=== PATIENT | female | born 1970 | race Caucasian/White ===

== ENCOUNTER → 2016-09-26 | Outpatient (CLI) | payer OTHER ==
--- NOTE | 2016-09-26 10:54 | REP ---
BILATERAL DIGITAL SCREENING MAMMOGRAM: 09/26/2016. Comparison: 06/04/2013, 04/08/2012, 04/23/2011, 04/07/2010. Clinical history: She has no current complaints, personal or family history of breast cancer. Findings: There are scattered fibroglandular elements of moderate density in the breast parenchyma in a pattern and distribution generally unchanged. However, in the upper outer quadrant of the right breast and lower inner quadrant of that same breast, there are areas of dense tissue asymmetry and nodular tissue asymmetry compared to previous studies respectively. The dense asymmetries in the upper outer quadrant and the nodular tissue asymmetry is lower inner quadrant of that same breast. I do not see skin thickening, other areas of architectural distortion or significant tissue asymmetry, dominant mass or other secondary sign of malignancy. No clustered microcalcifications. Impression: 1. BI-RADS ACR category 0, incomplete. Needs additional imaging evaluation. The patient should return for spot imaging of the upper outer and lower inner quadrants of the right breast. This should be accomplished with the bread anderson spot device and an additional images of the breast may be obtained at the discretion of the reviewing radiologist. Ultrasound should also be scheduled. This mammogram was interpreted with the aid of an FDA-approved computer-aided detection system. The patient states that she/he has not had a clinical breast exam in over a year. The patient letter being requested is M0. Signed by Irvin Gaspar MD 09/26/2016 07:04 P
== END ==
LOC: M RAD 09:15
PROVIDERS: ATTEND Internal Medicine
DX: Z12.31 Encounter for screening mammogram for malignant neoplasm of breast (principal)

== ENCOUNTER → 2016-10-02 | Outpatient (CLI) | payer OTHER ==
--- NOTE | 2016-10-02 16:04 | REP ---
DIAGNOSTIC MAMMOGRAM RIGHT BREAST: Diagnostic mammogram right breast performed with multiple additional views obtained of the right breast. Comparison made with recent mammogram of 09/26/2016 and comparison also made of other prior exams. The asymmetric opacities in the upper outer quadrant of the right breast and lower inner quadrant of the right breast compress out to an unchanged appearance compared to other prior exams. No persistent abnormality is seen. IMPRESSION: ACR 2 benign. No persistent abnormality on today's spot compression views, with no change since more remote exams. Recommend followup mammogram in one year. BI-RADS/ACR category 2 mammogram. Benign finding(s). Routine annual screening mammography (for women over age 40). This mammogram was interpreted with the aid of an FDA-approved computer-aided detection system. The patient letter being requested is M1 Signed by Clemente Davis MD 10/02/2016 08:13 P
== END ==
LOC: M RAD 15:10
PROVIDERS: ATTEND Internal Medicine
DX: N64.89 Other specified disorders of breast (principal)

== ENCOUNTER 2017-08-08 17:08 | Emergency (ER) | payer OTHER ==
[2017-08-08] MEDS: NS 1,000 ML IV (18:00)
[2017-08-08] MEDS: KETOROLAC 30 MG/ML VIAL (J1885) IV (18:00)
[2017-08-08] MEDS: METOCLOPRAMIDE INJ 10MG/2ML VIAL (J2765) IV (18:00)
[2017-08-08 18:13] LABS: BASO % 0.3 % (0.0-1.0); EOS # 0.1 10^3/uL (0.0-0.50); EOS % 1.5 % (0.0-3.0); HEMATOCRIT 44.6 % (36.0-47.0); IMMATURE GRANULOCYTE % 0.3 % (0-3.0); LYMPH % 13.7 % (24.0-44.0); MEAN CORPUSCULAR HEMOGLOBIN 30.9 pg (27.0-33.0); MEAN CORPUSCULAR HGB CONC 33.6 g/dl (32.0-36.5); MEAN CORPUSCULAR VOLUME 91.8 fl (80.0-96.0); MONO # 0.4 10^3/uL (0.0-0.8); MONO % 5.5 % (0.0-5.0); NEUTROPHILS # 5.8 10^3/uL (1.8-7.7); NEUTROPHILS % 78.7 % (36.0-66.0); PLATELET COUNT, AUTOMATED 237 10^3/uL (150-450); RED BLOOD COUNT 4.86 10^6/uL (4.00-5.40); RED CELL DISTRIBUTION WIDTH 11.7 % (11.5-14.5); WHITE BLOOD COUNT 7.4 10^3/uL (4.0-10.0)
[2017-08-08 18:15] LABS: CONTROL LINE UCG INT CTR LINE PRESENT; URINE PREG TEST NEGATIVE (NEGATIVE)
[2017-08-08] MEDS: GASTROGRAFIN SOLUTION 30ML PO ×2 (18:15→18:45)
[2017-08-08 18:17] LABS: KETONE, URINE AUTO RFX TRACE mg/dL (NEGATIVE); LEUKOCYTE ESTERASE UR AUTO RFX NEGATIVE (NEGATIVE); NITRITE, URINE AUTO RFX NEGATIVE (NEGATIVE); RBC, URINE AUTO RFX 0 /HPF (0-3); SPECIFIC GRAVITY UR AUTO RFX 1.005 (1.002-1.035); SQUAM EPITHELIAL CELL UR AURFX 0 /HPF (0-6); WBC, URINE AUTO RFX 0 /HPF (0-3)
[2017-08-08 18:50] LABS: ALBUMIN 4.5 GM/DL (3.2-5.2); ALBUMIN/GLOBULIN RATIO 1.41 (1.00-1.93); ALKALINE PHOSPHATASE 71 U/L (45-117); ALT/SGPT 29 U/L (12-78); AMYLASE 47 U/L (25-115); ANION GAP 7 MEQ/L (8-16); AST/SGOT 31 U/L (7-37); BILIRUBIN,DIRECT 0.2 MG/DL (0.0-0.2); BILIRUBIN,TOTAL 0.6 MG/DL (0.2-1.0); BLOOD UREA NITROGEN 13 MG/DL (7-18); C REACTIVE PROTEIN QUANTITATIV < 0.30 MG/DL (0.00-0.30); CALCIUM LEVEL 8.9 MG/DL (8.5-10.1); CARBON DIOXIDE LEVEL 29 MEQ/L (21-32); CHLORIDE LEVEL 101 MEQ/L (98-107); CREATININE FOR GFR 0.69 MG/DL (0.55-1.30); GLOMERULAR FILTRATION RATE > 60.0 (>58); GLUCOSE, FASTING 126 MG/DL (70-100); POTASSIUM SERUM 3.7 MEQ/L (3.5-5.1); SODIUM LEVEL 137 MEQ/L (136-145); TOTAL PROTEIN 7.7 GM/DL (6.4-8.2)
[2017-08-08] MEDS ORDERED: ISOVUE-370 76% 100ML VIAL (Q9967) As Ordered (19:15)
== END 2017-08-08 21:00 | disposition home or self-care (01) ==
LOC: M ED 17:08
DX: R10.30 Lower abdominal pain, unspecified (principal); R11.2 Nausea with vomiting, unspecified; R19.7 Diarrhea, unspecified; M51.27 Other intervertebral disc displacement, lumbosacral region; Z79.899 Other long term (current) drug therapy
CPT/HCPCS: Q9963

== ENCOUNTER → 2017-10-18 | Outpatient (CLI) | payer OTHER | LOC: M RAD 08:43 | DX: Z12.31 Encounter for screening mammogram for malignant neoplasm of breast (principal) | CPT/HCPCS: 77067 ==

== ENCOUNTER 2018-01-12 12:11 | Emergency (ER) | payer OTHER ==
[2018-01-12] MEDS: MORPHINE 4 MG/ML 1ML VIAL/SYRINGE (J2270) IV (12:45)
[2018-01-12 13:02] LABS: BASO % 0.2 % (0.0-1.0); EOS # 0.1 10^3/uL (0.0-0.50); EOS % 2.8 % (0.0-3.0); HEMATOCRIT 44.2 % (36.0-47.0); HEMOGLOBIN 14.6 g/dl (12.0-15.5); IMMATURE GRANULOCYTE % 0.4 % (0-3.0); LYMPH # 1.2 10^3/uL (1.5-4.5); LYMPH % 23.8 % (24.0-44.0); MEAN CORPUSCULAR HEMOGLOBIN 31.1 pg (27.0-33.0); MONO # 0.4 10^3/uL (0.0-0.8); MONO % 7.7 % (0.0-5.0); NEUTROPHILS # 3.3 10^3/uL (1.8-7.7); NEUTROPHILS % 65.1 % (36.0-66.0); PLATELET COUNT, AUTOMATED 194 10^3/uL (150-450); RED CELL DISTRIBUTION WIDTH 11.5 % (11.5-14.5)
[2018-01-12 13:32] LABS: ANION GAP 6 MEQ/L (8-16); BLOOD UREA NITROGEN 7 MG/DL (7-18); CALCIUM LEVEL 8.8 MG/DL (8.5-10.1); CARBON DIOXIDE LEVEL 29 MEQ/L (21-32); CHLORIDE LEVEL 108 MEQ/L (98-107); CPK CREATINE PHOSPHOKINASE 64 U/L (26-192); CREATININE FOR GFR 0.72 MG/DL (0.55-1.30); GLOMERULAR FILTRATION RATE > 60.0 (>58); GLUCOSE, FASTING 105 MG/DL (70-100); MB/CK RELATIVE INDEX 2.97 (< OR =4); POTASSIUM SERUM 4.6 MEQ/L (3.5-5.1); SODIUM LEVEL 143 MEQ/L (136-145); TROPONIN I < 0.02 NG/ML (< 0.10)
[2018-01-12] MEDS ORDERED: ISOVUE-370 76% 100ML VIAL (Q9967) As Ordered (13:42)
== END 2018-01-12 15:31 | disposition home or self-care (01) ==
LOC: M ED 12:11
DX: M54.5 Low back pain (principal); R91.1 Solitary pulmonary nodule; F31.9 Bipolar disorder, unspecified; Z79.899 Other long term (current) drug therapy
CPT/HCPCS: J2270

== ENCOUNTER → 2018-03-19 | Outpatient (CLI) | payer OTHER ==
[~2018-03-19] MED LIST: ADDE10CA3 PO; BENT10CA PO; BUPR10TASR PO; CETI10TA PO; DRON1CAP3 PO; IBUP200C25 PO; KETO10TAB PO; MONT10TA2 PO; MULTCAP PO; PERC5TAB12 PO; REGL10TA6 PO; VITA100067 PO
== END ==
LOC: M RAD 14:58
PROVIDERS: ATTEND Family Medicine
DX: Z12.31 Encounter for screening mammogram for malignant neoplasm of breast (principal); Z53.8 Procedure and treatment not carried out for other reasons

== ENCOUNTER → 2018-07-03 | Outpatient (CLI) | payer OTHER ==
[~2018-07-03] MED LIST changes: +ISOVUE-370 76% 100ML VIAL (Q9967) As Ordered ONE
--- NOTE | 2018-07-04 03:36 | REP ---
Clinical: Follow-up pulmonary nodule. Technique: Axial contrast enhanced images from the thoracic inlet to the upper upper abdomen with coronal and sagittal re-formations using 100 ml Isovue 370 intravenous contrast material. Comparison: 01/12/2018. Findings: The bilateral lung ann are well-aerated. 6 mm noncalcified nodule along the anterior margin of the left upper lobe (image 30) remains stable. No further consolidation, nodule or mass lesion. No pleural effusion. No pneumothorax. Tracheobronchial tree is patent. The mediastinum demonstrates normal thoracic aorta and pulmonary vasculature. Heart and pericardium are unremarkable. No axillary, hilar, or mediastinal adenopathy. Surrounding musculoskeletal structures are intact and without focal abnormality. Limited upper abdomen demonstrates normal bilateral adrenal glands. Impression: Stable 6 mm nodule/density in the anterior left upper lobe. Findings likely represent chronic scar. Nine to 12-month follow-up examination may be warranted to confirm stability. Electronically Signed by Sascha Vega MD 07/04/2018 03:27 A
== END ==
LOC: M RAD 13:59
PROVIDERS: ATTEND Family Medicine
DX: R91.1 Solitary pulmonary nodule (principal)
CPT/HCPCS: 71260; Q9967

== ENCOUNTER → 2018-10-20 | Outpatient (CLI) | payer OTHER ==
[~2018-10-20] MED LIST changes: -ISOVUE-370 76% 100ML VIAL (Q9967) As Ordered ONE
--- NOTE | 2018-10-20 14:35 | REPMRS ---
Patient History The patient states she has not had a clinical breast exam in over a year. Family history of unknown cancer at age 70 in maternal grandmother, breast cancer at age 55 in maternal aunt. denied. The Sly Bains lifetime risk for breast cancer is 17.8%. Digital Mammo Screening Bilat: October 20, 2018 - Exam #: [id number] Bilateral CC and MLO view(s) were taken. Technologist: Nadeen Doe, Technologist Prior study comparison: October 18, 2017, bilateral digital mammo screening bilat performed at [facility]. October 02, 2016, right breast digital mammo diagnostic unilateral performed at [facility]. FINDINGS: The breast tissue is heterogeneously dense. This may lower the sensitivity of mammography. There has been no change in the appearance of the mammogram from the prior studies. There is a moderate amount of residual fibroglandular tissue which is fairly symmetric. There is no interval development of dominant mass, areas of architectural distortion, or clustered microcalcification typical of malignancy. Assessment: BI-RADS/ACR category 1 mammogram. Negative Mammogram. Recommendation Routine screening mammogram in 1 year (for women over age 40). This mammogram was interpreted with the aid of an FDA-approved computer-aided dectection system. Electronically Signed By: Clemente Davis MD 10/20/18 [id number]
== END ==
LOC: M RAD 14:04
PROVIDERS: ATTEND Nurse Practitioner Primary Care
DX: Z12.31 Encounter for screening mammogram for malignant neoplasm of breast (principal)

== ENCOUNTER → 2020-04-28 | Outpatient (CLI) | payer OTHER ==
[~2020-04-28] MED LIST changes: +MONT10TA10 PO; -MONT10TA2 PO
--- NOTE | 2020-04-28 09:05 | REPMRS ---
Patient History The patient states she has not had a clinical breast exam in over a year. Patient had first child at age 32. Family history of unknown cancer at age 70 in maternal grandmother, breast cancer at age 55 in maternal aunt. 3D TOMOSYNTHESIS WAS PERFORMED. [facility]%. Volpara breast density b. Digital Woman Screen Mammo: April 28, 2020 - Exam #: [id number] Bilateral CC and MLO view(s) were taken. Technologist: Nadeen Doe, Technologist Prior study comparison: October 20, 2018, bilateral digital mammo screening bilat, performed at [facility]. October 18, 2017, bilateral digital mammo screening bilat, performed at [facility]. FINDINGS: There are scattered fibroglandular densities. There has been no change in the appearance of the mammogram from the prior studies. There is a mild amount of residual fibroglandular tissue which is fairly symmetric. There is no interval development of dominant mass, architectural distortion, or clustered microcalcification suggestive of malignancy. Assessment: BI-RADS/ACR category 1 mammogram. Negative Mammogram. Recommendation Routine screening mammogram in 1 year (for women over age 40). This mammogram was interpreted with the aid of an FDA-approved computer-aided dectection system. Electronically Signed By: Clemente Davis MD 04/28/20 0905
== END ==
LOC: M WHC 06:51
PROVIDERS: ATTEND Family Medicine
DX: Z12.31 Encounter for screening mammogram for malignant neoplasm of breast (principal)

== ENCOUNTER → 2020-09-05 | Outpatient (REF) | payer OTHER | LOC: M SFHCWAGY 18:14 | PROVIDERS: ATTEND Nurse Practitioner Women's Health | DX: Z12.4 Encounter for screening for malignant neoplasm of cervix (principal) | CPT/HCPCS: G0123; G0463 ==

== ENCOUNTER 2020-11-05 08:35 | Emergency (ER) | payer OTHER ==
[~2020-11-05] VITALS: Ht 170.2 cm; Wt 78.5 kg
[2020-11-05] MEDS ORDERED: LIDO1PAD TOP (08:44)
[2020-11-05] MEDS ORDERED: CYCL5TAB PO (08:44)
[2020-11-05] MEDS ORDERED: WELLTAB38 PO (08:44)
[2020-11-05] MEDS ORDERED: LIDOCAINE 5% (LIDODERM) PATCH TD ONE (10:10)
[2020-11-05] MEDS ORDERED: KETOROLAC 30 MG/ML 1ML VIAL IV ONE (10:10)
[2020-11-05] MEDS ORDERED: diazePAM 10MG/2ML SYRINGE (J3360 PER 5MG) IV ONE ×2 (10:10→11:10)
--- NOTE | 2020-11-05 10:41 | REP ---
INDICATION: low back pain, severe x 4 days. COMPARISON: 01/12/2018. TECHNIQUE: Axial images with sagittal and coronal reconstruction images. FINDINGS: There is no compression fracture or malalignment. There is no spondylolysis or spondylolisthesis. There is moderate spurring at L5 and S1 with moderate disc space narrowing and subchondral sclerosis at that level. Findings are similar to the prior study. At the L2-3 and L3-4 there is mild diffuse disc bulging without spinal stenosis or foraminal narrowing. At L4-5 there is mild diffuse disc bulging and hypertrophy of the ligamentum flavum, as well as mild hypertrophic spurring at the posterior facet joints. There is mild spinal stenosis. At L5-S1 there is mild diffuse disc bulging. There is moderate facet spurring. There is no spinal stenosis. There is mild right-sided foraminal narrowing and moderately severe left-sided foraminal narrowing. IMPRESSION: No acute fracture or dislocation. Moderate degenerative disc changes L5-S1. Mild disc bulging at multiple levels with facet spurring and areas of mild foraminal narrowing as discussed above. There is moderately severe left-sided foraminal narrowing at L5-S1. These findings are unchanged when compared to the prior study. <Electronically signed by Clemente Davis > 11/05/20 1037
[2020-11-05] MEDS ORDERED: methylPREDNISolone 125MG 2ML VIAL IV ONE (11:10)
[2020-11-05] MEDS ORDERED: ASPE4PAD TOP (12:05)
[2020-11-05] MEDS ORDERED: METH-1165 PO (12:05)
[2020-11-05] MEDS ORDERED: NAPR-837 PO (12:05)
[2020-11-05] MEDS ORDERED: HYDR-3713 PO (12:05)
[2020-11-05] MEDS ORDERED: PRED20TA PO (12:05)
[2020-11-05 12:08] VITALS: BP 141/81
[2020-11-05] MEDS ORDERED: **NOTE PATIENT COMMENT** MISC XX ONE (22:00)
== END 2020-11-05 12:12 | disposition home or self-care (01) ==
LOC: M ED 08:35
DX: M54.5 Low back pain (principal); G89.29 Other chronic pain; R26.2 Difficulty in walking, not elsewhere classified; Z79.899 Other long term (current) drug therapy
CPT/HCPCS: 72131; 96374; 96375; 96376; 99284; J1885; J2930; J3360

== ENCOUNTER → 2022-02-14 | Outpatient (CLI) | payer OTHER ==
[~2022-02-14] MED LIST changes: +ASPE4PAD TOP; +CYCL5TAB PO; +HYDR-3713 PO; +LIDO1PAD TOP; +METH-1165 PO; -MONT10TA10 PO; +MONT10TA97 PO; +NAPR-837 PO; +PRED20TA PO; +WELLTAB38 PO
== END ==
LOC: M WHC 06:48
PROVIDERS: ATTEND Family Medicine
DX: Z12.31 Encounter for screening mammogram for malignant neoplasm of breast (principal)

== ENCOUNTER 2022-05-14 02:08 | Emergency (ER) | payer OTHER ==
[~2022-05-14] VITALS: Ht 170.2 cm; Wt 36.3 kg
[2022-05-14 02:09] VITALS: BP 154/88
[2022-05-14 04:06] LABS: RSV AMPLIFICATION NEGATIVE (NEGATIVE)
== END 2022-05-14 05:00 | disposition left against medical advice (07) ==
LOC: M ED 02:08
DX: Z53.21 Procedure and treatment not carried out due to patient leaving prior to being seen by health care provider (principal)

== ENCOUNTER → 2023-07-19 | Outpatient (CLI) | payer OTHER ==
[~2023-07-19] MED LIST changes: +DRON10CA7 PO; -DRON1CAP3 PO
== END ==
LOC: M WHC 14:50
PROVIDERS: ATTEND Family Medicine
DX: Z12.31 Encounter for screening mammogram for malignant neoplasm of breast (principal); Z13.820 Encounter for screening for osteoporosis; Z79.52 Long term (current) use of systemic steroids

== ENCOUNTER 2023-12-23 06:41 | Emergency (ER) | payer OTHER ==
[~2023-12-23] VITALS: Ht 167.6 cm; Wt 73.4 kg
[2023-12-23] MEDS: LIDOCAINE 5% (LIDODERM) PATCH TD ONE (07:55)
[2023-12-23] MEDS: KETOROLAC 30 MG/ML 1ML VIAL IM ONE (07:55)
[2023-12-23 09:06] VITALS: BP 167/84; TEMP 98.1; O2SAT 99
== END 2023-12-23 09:37 | disposition home or self-care (01) ==
LOC: M ED 06:41
DX: M47.812 Spondylosis without myelopathy or radiculopathy, cervical region (principal); F41.9 Anxiety disorder, unspecified; F32.A Depression, unspecified; F31.9 Bipolar disorder, unspecified; Z79.1 Long term (current) use of non-steroidal anti-inflammatories (NSAID); Z79.810 Long term (current) use of selective estrogen receptor modulators (SERMs); Z79.52 Long term (current) use of systemic steroids; Z79.899 Other long term (current) drug therapy
CPT/HCPCS: 72040; 96372; 99283; J1885

== ENCOUNTER → 2023-12-27 | Outpatient (CLI) | payer OTHER | LOC: M PLAIMG 11:10 | PROVIDERS: ATTEND Physician Assistant | DX: M47.22 Other spondylosis with radiculopathy, cervical region (principal) ==

== ENCOUNTER 2024-03-12 16:09 | Inpatient (IN) | payer OTHER ==
[~2024-03-12] VITALS: Ht 167.6 cm; Wt 72.2 kg
[~2024-03-12 16:09] MED LIST changes: -CYCL5TAB PO; +CYCL5TAB4 PO
[2024-03-12] MEDS: METOCLOPRAMIDE INJ 10MG/2ML VIAL IM ONE (18:17)
[2024-03-12] MEDS: KETOROLAC 60MG 2ML VIAL IM ONE (18:18)
[2024-03-12] MEDS: diphenhydrAMINE 50MG CAP PO ONE (18:18)
[2024-03-12 18:47] LABS: HEMATOCRIT 42.9 % (36.0-47.0); HEMOGLOBIN 14.1 g/dl (12.0-15.5); MEAN CORPUSCULAR HEMOGLOBIN 30.9 pg (27.0-33.0); MEAN CORPUSCULAR HGB CONC 32.9 g/dl (32.0-36.5); MEAN CORPUSCULAR VOLUME 93.9 fl (80.0-96.0); PLATELET COUNT, AUTOMATED 238 10^3/uL (150-450); RED BLOOD COUNT 4.57 10^6/uL (4.00-5.40); WHITE BLOOD COUNT 5.7 10^3/uL (4.0-10.0)
[2024-03-12] MEDS ORDERED: ACET1TAB55 PO (18:49)
[2024-03-12] MEDS ORDERED: ADDE30CA3 PO (18:49)
[2024-03-12] MEDS ORDERED: METH-1164 PO (18:49)
[2024-03-12] MEDS ORDERED: ESTR1TAB PO (18:49)
[2024-03-12] MEDS ORDERED: THERTAB52 PO (18:49)
[2024-03-12] MEDS ORDERED: ONDA-83 PO (18:51)
[2024-03-12] MEDS ORDERED: LOSA25TA13 PO (18:54)
[2024-03-12] MEDS ORDERED: PROG1CAP8 PO (18:55)
[2024-03-12] MEDS ORDERED: CETI10TA4 PO (18:55)
[2024-03-12] MEDS ORDERED: MUCU1TAB PO (18:55)
[2024-03-12] MEDS ORDERED: BUSP15TA47 PO (18:57)
[2024-03-12] MEDS ORDERED: LAMO100T3 PO (18:58)
[2024-03-12] MEDS ORDERED: HOME MED LIST COMPLETE! XX SCH (19:05)
[2024-03-12 19:07] LABS: AMPHETAMINES LEVEL URINE NEGATIVE (NEGATIVE); BARBITURATES URINE NEGATIVE (NEGATIVE)
[2024-03-12 19:08] LABS: BENZODIAZEPINES URINE NEGATIVE (NEGATIVE); COCAINE METABOLITE URINE NEGATIVE (NEGATIVE); ETHYL ALCOHOL (ETHANOL) 0.005 % (0.000-0.010); METHADONE URINE NEGATIVE (NEGATIVE); OPIATES URINE NEGATIVE (NEGATIVE); PHENCYCLIDINE URINE NEGATIVE (NEGATIVE)
[2024-03-12 19:09] LABS: CANNABINOIDS URINE POSITIVE (NEGATIVE)
[2024-03-12 19:10] LABS: ALBUMIN 4.3 G/DL (3.2-5.2); ALKALINE PHOSPHATASE 74 U/L (35-104); ALT/SGPT 33 U/L (7.0-40); AST/SGOT 43 U/L (<34); BILIRUBIN,DIRECT < 0.1 MG/DL (<0.4); BILIRUBIN,TOTAL 0.3 MG/DL (0.3-1.2); BLOOD UREA NITROGEN 15 MG/DL (9-23); CALCIUM LEVEL 9.5 MG/DL (8.5-10.1); CARBON DIOXIDE LEVEL 31 MMOL/L (20-31); CHLORIDE LEVEL 108 MMOL/L (98-107); CREATININE FOR GFR 0.69 MG/DL (0.55-1.30); GLOMERULAR FILTRATION RATE > 60.0 (>51); GLUCOSE, FASTING 121 MG/DL (60-100); POTASSIUM SERUM 4.6 MMOL/L (3.5-5.1); SALICYLATE LEVEL < 3.0 MG/DL (<30); SODIUM LEVEL 147 MMOL/L (136-145); TOTAL PROTEIN 7.1 G/DL (5.7-8.2)
[2024-03-12 19:14] LABS: THYROID STIMULATING HORMONE 1.693 uIU/ML (0.55-4.78)
[2024-03-12] MEDS ORDERED: TRAN1DIS4 TOP (19:16)
[2024-03-12] MEDS ORDERED: MAGN400T33 PO (19:30)
[2024-03-12] MEDS ORDERED: VITA100T28 PO (19:30)
[2024-03-12] MEDS ORDERED: GABA-1172 PO (19:30)
[2024-03-12] MEDS ORDERED: HYDR-3363 PO (19:30)
[2024-03-12] MEDS ORDERED: ASPE4PAD TOP (19:36)
[2024-03-12] MEDS ORDERED: ONDA-282 PO (19:39)
[2024-03-12] MEDS ORDERED: PRENTAB9 PO (19:39)
[2024-03-12] MEDS: ACETAMINOPHEN 500 MG TAB PO ONE (20:59)
[2024-03-12] MEDS ORDERED: IBUPROFEN 200MG TAB PO SCH (22:05)
[2024-03-12] MEDS ORDERED: ACETAMINOPHEN 325 MG TAB PO PRN (22:05)
[2024-03-12] MEDS ORDERED: CETIRIZINE (ZyrTEC) 10 MG TAB PO PRN (22:05)
[2024-03-12] MEDS: IBUPROFEN 800 MG TAB PO SCH (22:21)
[2024-03-12] MEDS: busPIRone 5 MG TAB PO SCH (22:36)
[2024-03-13] MEDS: IBUPROFEN 800 MG TAB PO SCH (04:05)
[2024-03-13] MEDS ORDERED: ADDE1TAB14 PO (08:14)
[2024-03-13] MEDS: PRENATAL VITAMINS CHEWABLE TABLET PO SCH (09:00)
[2024-03-13] MEDS ORDERED: lamoTRIgine 100MG TAB PO ONE (09:00)
[2024-03-13] MEDS ORDERED: DOCUSATE SODIUM 100MG CAPSULE PO ONE (09:00)
[2024-03-13] MEDS: DOCUSATE SODIUM 100MG CAPSULE PO SCH (09:06)
[2024-03-13] MEDS: THIAMINE 100 MG TAB PO SCH (09:06)
[2024-03-13] MEDS: MAGNESIUM OXIDE 400MG TAB (MAG-OX) PO SCH (09:06)
[2024-03-13] MEDS: lamoTRIgine 100MG TAB PO SCH (09:07)
[2024-03-13] MEDS: LOSARTAN 25 MG TAB PO SCH (09:07)
[2024-03-13] MEDS: estradioL 1 MG TAB PO SCH (09:07)
[2024-03-13] MEDS: PROGESTERONE 100MG CAPSULE (PATIENT'S OWN MED) PO SCH (09:08)
[2024-03-13] MEDS ORDERED: VENTAER INH (09:31)
[2024-03-13] MEDS ORDERED: ADDE10TA PO (09:33)
[2024-03-13 12:25] VITALS: BP 163/87; TEMP 97.5; O2SAT 97
[2024-03-13] MEDS ORDERED: CETIRIZINE (ZyrTEC) 10 MG TAB PO PRN (14:20)
[2024-03-13] MEDS: methocarbamoL 500 MG TAB PO PRN (15:57)
[2024-03-13] MEDS: IBUPROFEN 600MG TAB PO PRN (16:50)
[2024-03-13] MEDS ORDERED: lamoTRIgine 100MG TAB PO SCH (21:00)
[2024-03-13] MEDS: busPIRone 5 MG TAB PO SCH (21:00)
[2024-03-13] MEDS: GABAPENTIN 300 MG CAP PO PRN (21:56)
[2024-03-13] MEDS: traZODone 50 MG TAB PO PRN (21:56)
[2024-03-13] MEDS: ONDANSETRON 4MG ORAL DISINTEGRATING TAB PO PRN (21:56)
[2024-03-14] MEDS: ACETAMINOPHEN 325 MG TAB PO PRN (05:37)
[2024-03-14 06:29] VITALS: BP 144/88; TEMP 98.6; O2SAT 97
[2024-03-14] MEDS ORDERED: PROGESTERONE 100MG CAPSULE (PATIENT'S OWN MED) PO SCH (09:00)
[2024-03-14] MEDS: lamoTRIgine 100MG TAB PO SCH (09:53)
[2024-03-14] MEDS: ALBUTEROL 90 MCG/ACT 8GM HFA INHALER INH PRN (09:53)
[2024-03-14] MEDS: estradioL 1 MG TAB PO SCH (09:54)
[2024-03-14] MEDS: PROGESTERONE 100MG CAPSULE (PATIENT'S OWN MED) PO SCH (09:54)
[2024-03-14] MEDS: LOSARTAN 25 MG TAB PO SCH (09:56)
[2024-03-14] MEDS: ADDERALL 5 MG TAB PO SCH (11:56)
[2024-03-14] MEDS: THIAMINE 100 MG TAB PO SCH (11:57)
[2024-03-14] MEDS: traZODone 25MG PER 1/2 TABLET PO PRN (11:58)
[2024-03-14] MEDS: CETIRIZINE (ZyrTEC) 10 MG TAB PO SCH (12:02)
[2024-03-14] MEDS: PRENATAL VITAMINS CHEWABLE TABLET PO SCH (13:04)
[2024-03-14 15:28] VITALS: BP 140/72; TEMP 97.9; O2SAT 98
[2024-03-14] MEDS: MAGNESIUM OXIDE 400MG TAB (MAG-OX) PO SCH (20:08)
[2024-03-14] MEDS: traZODone 100 MG TAB PO PRN (21:52)
[2024-03-14] MEDS: SCOPOLAMINE 1MG TRANSDERMAL PATCH TOP PRN (21:53)
[2024-03-15] MEDS: AMPHETAMINE/DEXTROAMPHETAMINE 5 MG *ER* CAPSULE (ADDERALL XR) PO SCH (08:30)
[2024-03-15] MEDS: CEPACOL LOZENGE PO PRN (10:03)
[2024-03-15 15:40] VITALS: BP 136/80; TEMP 97.9; O2SAT 99
[2024-03-15] MEDS: HYDROCORTISONE 1% CREAM 30GM TOP SCH (20:34)
[2024-03-16 09:14] VITALS: BP 141/75
[2024-03-16] MEDS: ACETAMINOPH W/CODEINE #3 TAB UD PO ONE (13:11)
[2024-03-16 15:22] VITALS: BP 165/80; TEMP 98.2; O2SAT 99
[2024-03-17 06:36] VITALS: BP 149/78; TEMP 97.4; O2SAT 98
[2024-03-17 08:36] VITALS: BP 140/87
[2024-03-17] MEDS: ACETAMINOPH W/CODEINE #3 TAB UD PO ONE (10:14)
[2024-03-17] MEDS: PALIPERIDONE 3MG ER TAB (INVEGA) PO ONE (10:17)
[2024-03-17 15:53] VITALS: BP 145/78; TEMP 97.5; O2SAT 98
[2024-03-17] MEDS: traZODone 50 MG TAB PO SCH (20:41)
[2024-03-18 06:32] VITALS: BP 149/84; TEMP 97.9; O2SAT 100
[2024-03-18] MEDS: PALIPERIDONE 3MG ER TAB (INVEGA) PO SCH ×2 (08:28→20:05)
[2024-03-18] MEDS: traMADol 50 MG TAB PO ONE (11:15)
[2024-03-18] MEDS: ONDANSETRON 4MG ORAL DISINTEGRATING TAB PO PRN (15:37)
[2024-03-18] MEDS: ACETAMINOPH W/CODEINE #3 TAB UD PO ONE (15:59)
[2024-03-18 16:44] VITALS: BP 144/69; TEMP 98.6; O2SAT 98
[2024-03-18] MEDS: traZODone 100 MG TAB PO SCH (20:05)
[2024-03-19 06:30] VITALS: BP 136/82; TEMP 97.4; O2SAT 100
[2024-03-19] MEDS: TRIAMCINOLONE ACET 0.1% OINTMENT 15GM TOP PRN (12:13)
[2024-03-19 15:22] VITALS: BP 137/82; TEMP 98; O2SAT 100
[2024-03-19] MEDS: clonazePAM 1 MG TAB PO ONE (20:48)
[2024-03-20] MEDS: PALIPERIDONE 6MG ER TAB (INVEGA) PO SCH (02:07)
[2024-03-20] MEDS: ACETAMINOPH W/CODEINE #3 TAB UD PO ONE (08:44)
[2024-03-20] MEDS: LIDOCAINE 5% (LIDODERM) PATCH TD SCH (14:22)
[2024-03-20 14:55] VITALS: BP 145/75; TEMP 97.7; O2SAT 99
[2024-03-20] MEDS: PALIPERIDONE 3MG ER TAB (INVEGA) PO SCH (20:38)
[2024-03-21 10:04] VITALS: BP 119/74; TEMP 97.7; O2SAT 99
[2024-03-21 16:08] VITALS: BP 136/74; TEMP 98; O2SAT 100
[2024-03-21] MEDS: PALIPERIDONE 6MG ER TAB (INVEGA) PO SCH (21:00)
[2024-03-21] MEDS: DOCUSATE SODIUM 100MG CAPSULE PO PRN (23:25)
[2024-03-22 06:32] VITALS: BP 141/84; TEMP 97.6
[2024-03-22] MEDS ORDERED: PALIPERIDONE PAL 234MG/1.5ML INJ (INVEGA)(FREE PSY INPT ONLY) IM ONE (09:00)
[2024-03-22 16:04] VITALS: BP 133/82; TEMP 98; O2SAT 100
[2024-03-22] MEDS: PALIPERIDONE PAL 234MG/1.5ML INJ (INVEGA)(FREE PSY INPT ONLY) IM ONE (18:22)
[2024-03-23 06:36] VITALS: BP 139/75; TEMP 97.2; O2SAT 98
[2024-03-23 08:52] VITALS: BP 135/76
[2024-03-23 08:57] VITALS: BP 135/76
[2024-03-23] MEDS ORDERED: COLA100C5 PO (09:49)
[2024-03-23] MEDS ORDERED: LIDO5TD TD (09:49)
[2024-03-23] MEDS ORDERED: TRAZ-257 PO (09:49)
[2024-03-23] MEDS ORDERED: INVE156I IM (09:49)
[2024-03-23] MEDS ORDERED: LAMO100T3 PO (09:49)
[2024-03-23] MEDS ORDERED: INVE234I IM (09:49)
[2024-03-23] MEDS ORDERED: THIA100TA PO (09:49)
[2024-03-23] MEDS ORDERED: TRIA1OI TOP (09:49)
[2024-03-23] MEDS ORDERED: PALI1TAB3 PO (09:49)
== END 2024-03-23 15:47 | disposition home or self-care (01) | DRG 885 ==
LOC: M ED 16:09 → M ED INP 03-13 11:38 → M PSY 03-13 12:19
PROVIDERS: ADMIT Psychiatry & Neurology Psychiatry; ATTEND Psychiatry & Neurology Psychiatry
DX: F31.10 Bipolar disorder, current episode manic without psychotic features, unspecified (principal); F90.9 Attention-deficit hyperactivity disorder, unspecified type; I10 Essential (primary) hypertension; J45.909 Unspecified asthma, uncomplicated; G89.29 Other chronic pain; Z79.899 Other long term (current) drug therapy; G43.909 Migraine, unspecified, not intractable, without status migrainosus

== ENCOUNTER → 2024-03-25 | Outpatient (CLI) | payer OTHER ==
[~2024-03-25] MED LIST changes: +ACET1TAB55 PO; +ADDE10TA PO; +ADDE1TAB14 PO; +ADDE30CA3 PO; +BUSP15TA47 PO; +CETI10TA4 PO; +COLA100C5 PO; +ESTR1TAB PO; +GABA-1172 PO; +HYDR-3363 PO; +INVE156I IM; +INVE234I IM; +LAMO100T3 PO; +LIDO5TD TD; +LOSA25TA13 PO; +MAGN400T33 PO; +METH-1164 PO; +MUCU1TAB PO; +ONDA-282 PO; +ONDA-83 PO; +PALI1TAB3 PO; +PRENTAB9 PO; +PROG1CAP8 PO; +THERTAB52 PO; +THIA100TA PO; +TRAN1DIS4 TOP; +TRAZ-257 PO; +TRIA1OI TOP; +VENTAER INH; +VITA100T28 PO
== END ==
LOC: M OUTALCOH 13:00
PROVIDERS: ATTEND Psychiatry & Neurology Psychiatry
DX: F10.20 Alcohol dependence, uncomplicated (principal); F12.20 Cannabis dependence, uncomplicated

== ENCOUNTER 2024-04-22 16:00 | Outpatient (RCR) | payer OTHER | END 2024-04-24 | LOC: M OUTALCOH 16:00 | PROVIDERS: ATTEND Psychiatry & Neurology Psychiatry | DX: F10.20 Alcohol dependence, uncomplicated (principal); F12.20 Cannabis dependence, uncomplicated ==

== ENCOUNTER 2024-04-23 10:00 | Outpatient (RCR) | payer OTHER | END 2024-04-24 | LOC: M OUTALCOH 10:00 | PROVIDERS: ATTEND Psychiatry & Neurology Psychiatry | DX: F10.20 Alcohol dependence, uncomplicated (principal); F12.20 Cannabis dependence, uncomplicated ==

== ENCOUNTER → 2024-05-25 | Outpatient (RCR) | payer OTHER | LOC: M OUTALCOH 05-11 16:00 | PROVIDERS: ATTEND Psychiatry & Neurology Psychiatry | DX: F10.20 Alcohol dependence, uncomplicated (principal); F12.20 Cannabis dependence, uncomplicated ==

== ENCOUNTER → 2024-06-02 | Outpatient (REF) | LOC: M PLAIMG 14:16 | PROVIDERS: ATTEND Internal Medicine | DX: M47.816 Spondylosis without myelopathy or radiculopathy, lumbar region (principal); M47.892 Other spondylosis, cervical region ==

== ENCOUNTER 2024-06-22 15:42 | Outpatient (RCR) | payer OTHER ==
[~2024-06-22 15:42] MED LIST changes: -DRON10CA7 PO; +DRON10CA8 PO
== END 2024-06-24 ==
LOC: M OUTALCOH 15:42
PROVIDERS: ATTEND Psychiatry & Neurology Psychiatry
DX: F10.20 Alcohol dependence, uncomplicated (principal); F12.20 Cannabis dependence, uncomplicated

== ENCOUNTER → 2025-01-01 | Outpatient (CLI) | payer OTHER ==
[2025-01-01 08:02] LABS: BASO # 0.0 10^3/uL (0.0-0.2); BASO % 0.4 % (0.0-1.0); EOS # 0.2 10^3/uL (0.0-0.5); EOS % 4.1 % (0.0-3.0); LYMPH # 1.3 10^3/uL (1.5-5.0); LYMPH % 24.5 % (24.0-44.0); MONO # 0.4 10^3/uL (0.0-0.8); MONO % 8.1 % (2.0-8.0); NEUTROPHILS # 3.4 10^3/uL (1.5-8.5); NEUTROPHILS % 62.5 % (36.0-66.0); PLATELET COUNT, AUTOMATED 218 10^3/uL (150-450)
[2025-01-01 08:21] LABS: ALT/SGPT 20 U/L (7.0-40); AST/SGOT 31 U/L (<34); CALCIUM LEVEL 8.8 MG/DL (8.5-10.1); CARBON DIOXIDE LEVEL 29 MMOL/L (20-31); CHLORIDE LEVEL 101 MMOL/L (98-107); CREATININE FOR GFR 0.72 MG/DL (0.55-1.30); GLOMERULAR FILTRATION RATE > 90.0 (>51); POTASSIUM SERUM 4.3 MMOL/L (3.5-5.1); SODIUM LEVEL 140 MMOL/L (136-145)
[2025-01-01 10:01] LABS: ESTIMATED AVERAGE GLUCOSE 123.0 MG/DL (60-110)
== END ==
LOC: M LAB 07:16
PROVIDERS: ATTEND Physician Assistant
DX: R73.03 Prediabetes (principal)